=== PATIENT | female | born 1990 | race Two or more races ===

== ENCOUNTER 2024-06-09 14:13 | Emergency (ER) | payer OTHER ==
[~2024-06-09] VITALS: Ht 157.5 cm; Wt 54.4 kg
[~2024-06-09 14:13] MED LIST: KETO10TA2 PO
[2024-06-09] MEDS ORDERED: GLIPIZIDE XL10 MG (14:17)
[2024-06-09] MEDS ORDERED: TOUJEO MAX300 UNIT/1 (14:17)
[2024-06-09] MEDS ORDERED: JANUMET 50-1,01 EACH (14:17)
[2024-06-09] MEDS ORDERED: ACETAMINOPHEN 500 MG GEL..CAP PO ONE (15:15)
[2024-06-09] MEDS ORDERED: 0.9 % SODIUM CHLORIDE 500 ML IV ONE (15:15)
[2024-06-09 15:55] LABS: HEMATOCRIT 40.8 % (36.0-45.00); HEMOGLOBIN 13.7 g/dL (12.0-15.00); MEAN CELL VOLUME 84.6 fL (80.00-100.00); MEAN CORPUSCULAR HEMOGLOBIN 28.4 pg (27.00-32.0); MEAN CORPUSCULAR HGB CONC 33.6 g/dl (32.0-36.0); PLATELET COUNT 247 K/uL (150-450); RED BLOOD COUNT 4.83 M/uL (4.00-6.00); RED CELL DISTRIBUTION WIDTH 14.7 % (11.5-14.5)
[2024-06-09 16:23] LABS: CALCIUM 8.9 mg/dL (8.5-10.1); CREATININE SERUM 1.08 mg/dL (0.55-1.02); GFR 58.43; POTASSIUM 4.41 mEq/L (3.5-5.1)
[2024-06-09 17:19] VITALS: BP 120/80; O2SAT 100
== END 2024-06-09 17:20 | disposition home or self-care (01) ==
LOC: ER 14:14
PROVIDERS: General Practice
DX: R19.7 Diarrhea, unspecified (principal); B34.9 Viral infection, unspecified; A90 Dengue fever [classical dengue]; Z20.822 Contact with and (suspected) exposure to COVID-19; E11.9 Type 2 diabetes mellitus without complications; Z79.84 Long term (current) use of oral hypoglycemic drugs

== ENCOUNTER 2024-09-14 09:13 | Emergency (ER) | payer OTHER ==
[~2024-09-14] VITALS: Ht 157.5 cm; Wt 54.4 kg
[~2024-09-14 09:13] MED LIST changes: +GLIPIZIDE XL10 MG; +JANUMET 50-1,01 EACH; +TOUJEO MAX300 UNIT/1
[2024-09-14] MEDS ORDERED: 0.9 % SODIUM CHLORIDE 1,000 ML IV STA (09:37)
[2024-09-14] MEDS ORDERED: INSULIN REGULAR, HUMAN 1,000 UNIT/10 ML UNITS IV ONE (09:45)
[2024-09-14 09:54] LABS: HEMATOCRIT 40.5 % (36.0-45.00); HEMOGLOBIN 13.2 g/dL (12.0-15.00); MEAN CELL VOLUME 85.3 fL (80.00-100.00); MEAN CORPUSCULAR HEMOGLOBIN 27.8 pg (27.00-32.0); MEAN CORPUSCULAR HGB CONC 32.5 g/dl (32.0-36.0); PLATELET COUNT 252 K/uL (150-450); RED BLOOD COUNT 4.74 M/uL (4.00-6.00); RED CELL DISTRIBUTION WIDTH 15.4 % (11.5-14.5)
[2024-09-14 10:49] LABS: CALCIUM 9.1 mg/dL (8.5-10.1); CREATININE SERUM 0.88 mg/dL (0.55-1.02); POTASSIUM 4.23 mEq/L (3.5-5.1)
[2024-09-14 10:49] LABS: PH,URINE 5.5 (5.0-8.0); URINE APPEARANCE Clear; URINE BILIRRUBIN Negative (NEGATIVE); URINE BLOOD Negative; URINE COLOR Yellow; URINE KETONE Trace (NEGATIVE); URINE LEUKOCYTE Negative; URINE NITRATE Negative; URINE PROTEIN Negative (NEGATIVE); URINE UROBILINOGEN 0.2 E.U./dl
[2024-09-14 10:53] LABS: URINE BACTERIA 42.7 uL (0.0-1933); URINE EPITHELIAL CELLS 2.3 uL (0.0-38.8)
[2024-09-14 10:56] LABS: URINE GLUCOSE >=1000 MG/DL (NEGATIVE); URINE RBC 1.1 uL (0.0-20.8); URINE WBC 1.4 uL (0.0-23.2)
[2024-09-14 10:58] LABS: ABG PH 7.408 (7.35-7.45); ABG PO2 88.8 mmHg (80-100); ABG pCO2 39.2 mmHg (35-45); BASE EXCESS -0.3 mmol/l; BICARBONATE 24.2 mmol/l (23-25); SaO2 96.8 %; Tco2 25.4 mmol/l
[2024-09-14 10:59] LABS: allen test SATISFACTORY; o2 21 %; puncture site RADIAL LEFT
[2024-09-14] MEDS ORDERED: Dextrose ORAL GEL 37.5GM GEL PO ONE (15:34)
== END 2024-09-14 16:57 | disposition home or self-care (01) ==
LOC: ER 09:16
PROVIDERS: Emergency Medicine
DX: R73.9 Hyperglycemia, unspecified (principal)